=== PATIENT | female | born 1935 | race Caucasian/White ===

== ENCOUNTER 2020-05-16 17:54 | Inpatient (IN) | payer MEDICARE, MEDICAID ==
[~2020-05-16] VITALS: Ht 154.9 cm; Wt 72.7 kg
[2020-05-16] MEDS ORDERED: ASPIRIN CHILDRE81 MG PO (18:18)
[2020-05-16] MEDS ORDERED: HUMALOG100 UNIT/2 SQ (18:20)
[2020-05-16] MEDS ORDERED: LANTUS SOL100 UNIT/1 SC (18:20)
[2020-05-16] MEDS ORDERED: LIPITOR40 MG PO (18:21)
[2020-05-16] MEDS ORDERED: LEXAPRO20 MG PO (18:21)
[2020-05-16] MEDS ORDERED: LOSARTAN POTASS25 M1 PO (18:21)
[2020-05-16] MEDS ORDERED: ATIVAN0.5 MG PO (18:21)
[2020-05-16] MEDS ORDERED: MELATONIN5 M1 PO (18:22)
[2020-05-16] MEDS ORDERED: MULTIPLE VITAM1 EAC1 PO (18:22)
[2020-05-16] MEDS ORDERED: PLAVIX75 M1 PO (18:31)
[2020-05-16] MEDS ORDERED: PROTONIX20 MG PO (18:31)
[2020-05-16] MEDS ORDERED: TYLENOL EXTRA500 MG PO (18:32)
[2020-05-16] MEDS ORDERED: Kenalog 0.5% Cr15 GM T (18:32)
[2020-05-16] MEDS ORDERED: VITAMIN C500 M4 PO (18:33)
[2020-05-16] MEDS ORDERED: VITAMIN D350 MC2 PO (18:34)
[2020-05-17 12:19] VITALS: BP 136/69
[2020-05-17 13:13] LABS: BASO % 0.5 % (0.0-1.0); EOS # 0.3 10*3/uL (0.0-0.4); EOS % 3.7 % (1.0-4.0); LYMPH # 1.6 10*3/uL (1.3-4.4); MEAN CELL VOLUME 92.6 fl (81.0-99.0); MEAN CORPUSCULAR HGB 29.7 pg (27.0-31.0); MEAN CORPUSCULAR HGB CONC 32.1 g/dl (33.0-37.0); MEAN PLATELET VOLUME 10.9 fl (9.6-12.3); MONO # 0.7 10*3/uL (0.1-1.0); MONO % 9.1 % (3.0-9.0); NEUT # 5.3 10*3/uL (2.3-7.9); NEUT % 66.1 % (47.0-73.0); PLATELET COUNT AUTOMATED 219 10*3/uL (130-400); RED BLOOD COUNT 4.21 10*6/uL (4.10-5.10); RED CELL DISTRI WIDTH 13.7 % (0-14.5); WHITE BLOOD COUNT 7.9 10*3/uL (4.8-10.8)
[2020-05-17 13:45] LABS: ALBUMIN 2.7 gm/dl (3.1-4.5); CREATININE 1.44 mg/dL (0.55-1.02); POTASSIUM 4.3 mmol/L (3.5-5.1); TOTAL PROTEIN 7.3 gm/dL (6.4-8.2)
[2020-05-17 13:51] LABS: THYROID STIM HORMONE (HS) 0.729 uIU/ml (0.358-4.75); VITAMIN D, 25-HYDROXY 38.6 ng/mL (30-100)
[2020-05-17 19:30] VITALS: BP 130/68
[2020-05-18 05:03] LABS: BILIRUBIN Negative (Negative); BLOOD Negative (Negative); CLARITY Clear (Clear); COLOR Yellow (Yellow); GLUCOSE 1+ (Negative); KETONE Negative (Negative); LEUKO ESTERASE 1+ (Negative); NITRITE Negative (Negative); UROBILINOGEN 0.2 E.U./dl (0.0-1.0)
[2020-05-18 05:11] LABS: EPITHELIAL CELLS 16-20
[2020-05-18 05:12] LABS: BACTERIA 1+
[2020-05-18 06:50] LABS: CHOLESTEROL 87 mg/dL (<200); HDL CHOLESTEROL 38 mg/dl (40-60); LDL CHOLESTEROL 29 mg/dL (9-159); TRIGLYCERIDES 100 mg/dl (<150); VLDL CHOLESTEROL 20 mg/dL (6-40)
[2020-05-18 07:23] VITALS: BP 144/63
[2020-05-18 19:35] VITALS: BP 140/64
[2020-05-19 07:37] VITALS: BP 142/68
[2020-05-19 20:00] VITALS: BP 148/58
[2020-05-20 07:42] VITALS: BP 144/65
[2020-05-20 21:11] VITALS: BP 111/58
[2020-05-21 08:02] VITALS: BP 129/67
[2020-05-21 19:21] VITALS: BP 117/56
[2020-05-22 07:27] VITALS: BP 135/64
[2020-05-22 19:51] VITALS: BP 104/54
[2020-05-22 20:30] VITALS: BP 112/62
[2020-05-23 07:10] VITALS: BP 107/68
[2020-05-23 20:00] VITALS: BP 141/64
[2020-05-24 07:19] VITALS: BP 145/78
[2020-05-24 10:43] LABS: BILIRUBIN Negative (Negative); BLOOD Negative (Negative); CLARITY Clear (Clear); COLOR Yellow (Yellow); GLUCOSE 2+ (Negative); KETONE Negative (Negative); LEUKO ESTERASE Negative (Negative); NITRITE Negative (Negative); SPECIFIC GRAVITY 1.015 (1.001-1.030); UROBILINOGEN 0.2 E.U./dl (0.0-1.0)
[2020-05-24 11:13] LABS: EPITHELIAL CELLS 0-2; RBC 0-2 rbc/hpf (0-2); WBC 0-2 wbc/hpf (0-5)
[2020-05-24 20:16] VITALS: BP 116/52
[2020-05-25 07:19] VITALS: BP 108/70
[2020-05-25 20:00] VITALS: BP 112/80
[2020-05-26 07:28] VITALS: BP 122/43
[2020-05-26 19:09] VITALS: BP 118/73
[2020-05-27 08:00] VITALS: BP 128/89
[2020-05-27 19:37] VITALS: BP 129/47
[2020-05-28 07:14] VITALS: BP 130/64
[2020-05-28] MEDS ORDERED: RIVASTIGMINE1 EAC2 T (09:16)
[2020-05-28] MEDS ORDERED: MEMANTINE HCL10 MG PO (09:16)
[2020-05-28] MEDS ORDERED: RISPERIDONE M-0.5 MG OGT ×3 (09:16)
[2020-05-28] MEDS ORDERED: MIRTAZAPINE15 M2 PO (09:16)
[2020-05-28] MEDS ORDERED: HYDROXYZINE HCL25 MG PO (09:16)
[2020-05-28 12:36] LABS: BASO % 0.3 % (0.0-1.0); EOS # 0.1 10*3/uL (0.0-0.4); EOS % 1.4 % (1.0-4.0); HEMATOCRIT 37.1 % (37.0-47.0); LYMPH # 1.8 10*3/uL (1.3-4.4); LYMPH % 19.3 % (27.0-41.0); MEAN CELL VOLUME 94.9 fl (81.0-99.0); MEAN CORPUSCULAR HGB 29.2 pg (27.0-31.0); MEAN CORPUSCULAR HGB CONC 30.7 g/dl (33.0-37.0); MONO # 0.8 10*3/uL (0.1-1.0); NEUT # 6.3 10*3/uL (2.3-7.9); PLATELET COUNT AUTOMATED 221 10*3/uL (130-400); RED BLOOD COUNT 3.91 10*6/uL (4.10-5.10); RED CELL DISTRI WIDTH 13.4 % (0-14.5); WHITE BLOOD COUNT 9.1 10*3/uL (4.8-10.8)
[2020-05-28 15:45] LABS: ALBUMIN 2.4 gm/dl (3.1-4.5); CREATININE 2.66 mg/dL (0.55-1.02); POTASSIUM 5.9 mmol/L (3.5-5.1)
== END 2020-05-28 17:03 | disposition short-term general hospital (02) | DRG 885 ==
LOC: 3N 17:54
PROVIDERS: Counselor Professional; Registered Nurse; ADMIT Psychiatry & Neurology Psychiatry; ATTEND Psychiatry & Neurology Psychiatry
DX: F33.3 Major depressive disorder, recurrent, severe with psychotic symptoms (principal); F01.51 Vascular dementia, unspecified severity, with behavioral disturbance; N18.30 Chronic kidney disease, stage 3 unspecified; E11.65 Type 2 diabetes mellitus with hyperglycemia; N39.0 Urinary tract infection, site not specified; I25.10 Atherosclerotic heart disease of native coronary artery without angina pectoris; E78.5 Hyperlipidemia, unspecified; F41.9 Anxiety disorder, unspecified; Z20.822 Contact with and (suspected) exposure to COVID-19; E11.22 Type 2 diabetes mellitus with diabetic chronic kidney disease; I12.9 Hypertensive chronic kidney disease with stage 1 through stage 4 chronic kidney disease, or unspecified chronic kidney disease; G30.9 Alzheimer's disease, unspecified; F02.80 Dementia in other diseases classified elsewhere, unspecified severity, without behavioral disturbance, psychotic disturbance, mood disturbance, and anxiety; Z86.73 Personal history of transient ischemic attack (TIA), and cerebral infarction without residual deficits; Z79.4 Long term (current) use of insulin; Z90.49 Acquired absence of other specified parts of digestive tract; Z90.710 Acquired absence of both cervix and uterus; Z79.82 Long term (current) use of aspirin; Z79.899 Other long term (current) drug therapy; Z88.0 Allergy status to penicillin; Z88.2 Allergy status to sulfonamides; Z91.040 Latex allergy status

== ENCOUNTER 2020-05-28 17:07 | Inpatient (IN) | payer MEDICARE, MEDICAID ==
[~2020-05-28] VITALS: Ht 162.5 cm; Wt 72.1 kg
[~2020-05-28 17:07] MED LIST: ASPIRIN CHILDRE81 MG PO; ATIVAN0.5 MG PO; HUMALOG100 UNIT/2 SQ; HYDROXYZINE HCL25 MG PO; Kenalog 0.5% Cr15 GM T; LANTUS SOL100 UNIT/1 SC; LEXAPRO20 MG PO; LIPITOR40 MG PO; LOSARTAN POTASS25 M1 PO; MELATONIN5 M1 PO; MEMANTINE HCL10 MG PO; MIRTAZAPINE15 M2 PO; MULTIPLE VITAM1 EAC1 PO; PLAVIX75 M1 PO; PROTONIX20 MG PO; RISPERIDONE M-0.5 MG OGT; RIVASTIGMINE1 EAC2 T; TYLENOL EXTRA500 MG PO; VITAMIN C500 M4 PO; VITAMIN D350 MC2 PO
[2020-05-28 17:29] VITALS: BP 108/49
[2020-05-28 20:00] VITALS: BP 130/42
[2020-05-28 20:23] LABS: ALBUMIN 2.5 gm/dl (3.1-4.5); CREATININE 2.68 mg/dL (0.55-1.02)
[2020-05-28 20:25] LABS: POTASSIUM 6.3 mmol/L (3.5-5.1)
[2020-05-28 22:49] LABS: CREATININE 2.79 mg/dL (0.55-1.02); POTASSIUM 5.5 mmol/L (3.5-5.1)
[2020-05-29] VITALS: BP 108/56
[2020-05-29 06:56] LABS: BASO # 0.1 10*3/uL (0.0-0.1); BASO % 0.6 % (0.0-1.0); EOS # 0.3 10*3/uL (0.0-0.4); HEMATOCRIT 38.2 % (37.0-47.0); LYMPH % 18.7 % (27.0-41.0); MEAN CELL VOLUME 95.3 fl (81.0-99.0); MEAN CORPUSCULAR HGB 29.4 pg (27.0-31.0); MEAN CORPUSCULAR HGB CONC 30.9 g/dl (33.0-37.0); MEAN PLATELET VOLUME 10.8 fl (9.6-12.3); MONO # 0.9 10*3/uL (0.1-1.0); MONO % 8.8 % (3.0-9.0); NEUT # 7.2 10*3/uL (2.3-7.9); PLATELET COUNT AUTOMATED 219 10*3/uL (130-400); RED BLOOD COUNT 4.01 10*6/uL (4.10-5.10); RED CELL DISTRI WIDTH 13.3 % (0-14.5); WHITE BLOOD COUNT 10.6 10*3/uL (4.8-10.8)
[2020-05-29 07:14] LABS: ALBUMIN 2.6 gm/dl (3.1-4.5); CREATININE 2.81 mg/dL (0.55-1.02); POTASSIUM 5.6 mmol/L (3.5-5.1); TOTAL PROTEIN 7.1 gm/dL (6.4-8.2)
[2020-05-29 08:00] VITALS: BP 135/45
[2020-05-29 12:00] VITALS: BP 130/38
[2020-05-29 15:13] LABS: BILIRUBIN Negative (Negative); BLOOD Negative (Negative); CLARITY Cloudy (Clear); COLOR Yellow (Yellow); GLUCOSE Negative (Negative); KETONE Negative (Negative); LEUKO ESTERASE 2+ (Negative); NITRITE Negative (Negative); SPECIFIC GRAVITY 1.015 (1.001-1.030); UROBILINOGEN 0.2 E.U./dl (0.0-1.0)
[2020-05-29 15:22] LABS: URINE CHLORIDE, RANDOM < 10 mmol/L
[2020-05-29 15:32] LABS: BACTERIA 4+; WBC 41-50 wbc/hpf (0-5)
[2020-05-29 16:00] VITALS: BP 121/47
[2020-05-29 16:08] LABS: CREATININE 2.74 mg/dL (0.55-1.02)
[2020-05-29 20:00] VITALS: BP 151/50
[2020-05-30] VITALS: BP 111/50
[2020-05-30 06:46] LABS: BASO % 0.5 % (0.0-1.0); EOS # 0.3 10*3/uL (0.0-0.4); EOS % 4.1 % (1.0-4.0); HEMATOCRIT 35.7 % (37.0-47.0); LYMPH # 2.1 10*3/uL (1.3-4.4); LYMPH % 25.2 % (27.0-41.0); MEAN CORPUSCULAR HGB 29.2 pg (27.0-31.0); MEAN CORPUSCULAR HGB CONC 31.4 g/dl (33.0-37.0); MEAN PLATELET VOLUME 10.7 fl (9.6-12.3); MONO # 0.9 10*3/uL (0.1-1.0); MONO % 10.4 % (3.0-9.0); NEUT # 4.9 10*3/uL (2.3-7.9); NEUT % 59.1 % (47.0-73.0); PLATELET COUNT AUTOMATED 197 10*3/uL (130-400); RED BLOOD COUNT 3.84 10*6/uL (4.10-5.10); RED CELL DISTRI WIDTH 12.8 % (0-14.5); WHITE BLOOD COUNT 8.2 10*3/uL (4.8-10.8)
[2020-05-30 07:18] LABS: ALBUMIN 2.3 gm/dl (3.1-4.5); CREATININE 1.8 mg/dL (0.55-1.02); TOTAL PROTEIN 6.6 gm/dL (6.4-8.2)
[2020-05-30 07:27] LABS: POTASSIUM 4.8 mmol/L (3.5-5.1)
[2020-05-30 08:00] VITALS: BP 148/45
[2020-05-30 12:00] VITALS: BP 132/67
[2020-05-30 16:00] VITALS: BP 139/67
[2020-05-30 20:00] VITALS: BP 150/54
[2020-05-31] VITALS: BP 134/44
[2020-05-31 06:40] LABS: BASO # 0.1 10*3/uL (0.0-0.1); BASO % 0.8 % (0.0-1.0); EOS # 0.3 10*3/uL (0.0-0.4); EOS % 4.1 % (1.0-4.0); HEMATOCRIT 35.9 % (37.0-47.0); LYMPH # 2.3 10*3/uL (1.3-4.4); LYMPH % 30.1 % (27.0-41.0); MEAN CELL VOLUME 95.7 fl (81.0-99.0); MEAN CORPUSCULAR HGB 29.1 pg (27.0-31.0); MEAN CORPUSCULAR HGB CONC 30.4 g/dl (33.0-37.0); MEAN PLATELET VOLUME 10.9 fl (9.6-12.3); MONO # 0.8 10*3/uL (0.1-1.0); MONO % 10.2 % (3.0-9.0); NEUT # 4.1 10*3/uL (2.3-7.9); NEUT % 54.1 % (47.0-73.0); PLATELET COUNT AUTOMATED 171 10*3/uL (130-400); RED BLOOD COUNT 3.75 10*6/uL (4.10-5.10); RED CELL DISTRI WIDTH 12.8 % (0-14.5); WHITE BLOOD COUNT 7.5 10*3/uL (4.8-10.8)
[2020-05-31 06:47] LABS: CREATININE 1.44 mg/dL (0.55-1.02); POTASSIUM 4.7 mmol/L (3.5-5.1)
[2020-05-31 08:00] VITALS: BP 119/42
[2020-05-31 11:58] VITALS: BP 132/60
[2020-05-31 16:00] VITALS: BP 128/86
[2020-05-31 20:00] VITALS: BP 111/56
[2020-06-01] VITALS: BP 128/54
[2020-06-01 06:59] LABS: ALBUMIN 2.4 gm/dl (3.1-4.5); POTASSIUM 4.5 mmol/L (3.5-5.1)
[2020-06-01 07:01] LABS: CREATININE 1.38 mg/dL (0.55-1.02)
[2020-06-01 08:00] VITALS: BP 106/45
[2020-06-01 12:00] VITALS: BP 134/50
[2020-06-01 16:00] VITALS: BP 127/69
== END 2020-06-01 19:18 | DRG 682 ==
LOC: 5E 17:07
PROVIDERS: Family Medicine; Internal Medicine; Registered Nurse; Student in an Organized Health Care Education/Training Program; ADMIT Student in an Organized Health Care Education/Training Program; ATTEND Student in an Organized Health Care Education/Training Program
DX: N17.0 Acute kidney failure with tubular necrosis (principal); G93.41 Metabolic encephalopathy; E43 Unspecified severe protein-calorie malnutrition; N39.0 Urinary tract infection, site not specified; F33.3 Major depressive disorder, recurrent, severe with psychotic symptoms; F01.50 Vascular dementia, unspecified severity, without behavioral disturbance, psychotic disturbance, mood disturbance, and anxiety; I25.10 Atherosclerotic heart disease of native coronary artery without angina pectoris; E87.5 Hyperkalemia; F41.9 Anxiety disorder, unspecified; E11.22 Type 2 diabetes mellitus with diabetic chronic kidney disease; R33.9 Retention of urine, unspecified; N13.30 Unspecified hydronephrosis; I12.9 Hypertensive chronic kidney disease with stage 1 through stage 4 chronic kidney disease, or unspecified chronic kidney disease; G30.9 Alzheimer's disease, unspecified; Z66 Do not resuscitate; Z51.5 Encounter for palliative care; F02.80 Dementia in other diseases classified elsewhere, unspecified severity, without behavioral disturbance, psychotic disturbance, mood disturbance, and anxiety; E78.5 Hyperlipidemia, unspecified; Z98.42 Cataract extraction status, left eye; Z98.41 Cataract extraction status, right eye; Z90.49 Acquired absence of other specified parts of digestive tract; Z90.710 Acquired absence of both cervix and uterus; Z88.0 Allergy status to penicillin; Z88.2 Allergy status to sulfonamides; Z91.040 Latex allergy status